=== PATIENT | male | born 1960 | race Caucasian/White ===

== ENCOUNTER 2016-09-08 07:42 | Day surgery (SDC) | payer MEDICAID ==
[~2016-09-08] VITALS: Ht 175.3 cm; Wt 90.7 kg
[2016-09-08] MEDS ORDERED: MIDAZOLAM HCL 5 MG/5 ML VIAL IVP ONE (10:00)
[2016-09-08] MEDS ORDERED: PROPOFOL 200MG/ 20ML VIAL (DIPRIVAN) IV ONE (10:00)
[2016-09-08] MEDS ORDERED: SEVOFLURANE 15 MIN GAS INH ONE (10:00)
[2016-09-08] MEDS ORDERED: NS 1000 ML BAG IV ONE (10:00)
[2016-09-08] MEDS ORDERED: OXYMETAZOLINE HCL 0.05% NASAL SPRAY NS ONE (10:00)
[2016-09-08] MEDS ORDERED: ROCURONIUM BROMIDE 10 MG/ML (ZEMURON) IV ONE (10:00)
[2016-09-08] MEDS ORDERED: DEXAMETHASONE SOD PHOSPHATE 4 MG/ML VIAL IVP ONE (10:00)
[2016-09-08] MEDS ORDERED: LIDOCAINE/EPI 1% 1:100000 20 ML VIAL INJ ONE (10:00)
[2016-09-08] MEDS ORDERED: LR 1,000 ML IV.SOLN IV ONE (10:00)
[2016-09-08] MEDS ORDERED: fentaNYL CITRATE 250 MCG/5 ML AMP IV ONE (10:00)
[2016-09-08] MEDS ORDERED: ONDANSETRON HCL 4 MG/2 ML VIAL IVP ONE (10:00)
[2016-09-08] MEDS ORDERED: LR 1,000 ML IV SCH (10:55)
[2016-09-08] MEDS ORDERED: METOCLOPRAMIDE HCL 10 MG/2 ML VIAL IVP PRN (11:00)
[2016-09-08] MEDS ORDERED: MORPHINE 2 MG/ML INJ. SYRINGE IVP PRN ×3 (11:00)
[2016-09-08 12:50] VITALS: BP_SYST 150
[2016-09-08] MEDS ORDERED: HYDROcodone/ACETAMIN 5-325 MG TAB (NORCO/ VICODIN) PO PRN (13:00)
[2016-09-08] MEDS ORDERED: HYDROcodone/ACETAMIN 5-325 MG TAB (NORCO/ VICODIN) ONE (13:04)
== END 2016-09-08 15:15 | disposition home or self-care (01) ==
LOC: SDS 07:42 → SMU 07:43 → SDS 15:15
PROVIDERS: ATTEND Otolaryngology
DX: J34.2 Deviated nasal septum (principal); J32.9 Chronic sinusitis, unspecified; J33.9 Nasal polyp, unspecified; J34.89 Other specified disorders of nose and nasal sinuses; I10 Essential (primary) hypertension; E11.9 Type 2 diabetes mellitus without complications; K21.9 Gastro-esophageal reflux disease without esophagitis; Z87.891 Personal history of nicotine dependence; E66.9 Obesity, unspecified; E78.2 Mixed hyperlipidemia; Z79.899 Other long term (current) drug therapy
CPT/HCPCS: 30140; 30520; 31254; 31267; 31296; 31297; 82962; 88305; 88311; C1726; J1100; J2250; J2405; J2704; J3010; J7030; J7120